=== PATIENT | female | born 1995 | race African-American/Black ===

== ENCOUNTER 2017-08-05 12:29 | Emergency (ER) | payer OTHER ==
[~2017-08-05] VITALS: Ht 170.2 cm; Wt 93.9 kg
[~2017-08-05 12:29] MED LIST: IBUPROFEN 600600 M1 PO; MACROBID 100 M100 M1 PO; ONDANSETRON HCL4 M2 PO; PRENATAL COMPL1 EACH PO; PRENATAL PO; ZOLOFT25 MG PO
== END 2017-08-05 14:14 | disposition home or self-care (01) ==
LOC: ER 12:29
DX: J02.8 Acute pharyngitis due to other specified organisms (principal); B97.89 Other viral agents as the cause of diseases classified elsewhere; Z90.89 Acquired absence of other organs